=== PATIENT | female | born 1975 | race Caucasian/White ===

== ENCOUNTER → 2016-07-14 | Outpatient (REF) | payer OTHER ==
[~2016-07-14] MED LIST: GABA300C2 PO; IBUP200C PO; PERC5TAB PO; TYLE325T5 PO
== END ==
LOC: M LAB REF 16:22
PROVIDERS: ATTEND Physician Assistant Medical
DX: J02.9 Acute pharyngitis, unspecified (principal)

== ENCOUNTER → 2017-01-23 | Outpatient (REF) | payer OTHER ==
[~2017-01-23] MED LIST changes: +BENA25TA10 PO; +DOXY100C37 PO; +ELIQ5TAB PO; +LIDO1SOL7 MT; +PRED10TA2 PO; +SMZ/TMP PO
== END ==
LOC: M LABDRAW1 11:39
PROVIDERS: ATTEND Physician Assistant Medical
DX: I82.432 Acute embolism and thrombosis of left popliteal vein (principal)

== ENCOUNTER → 2017-01-26 | Outpatient (CLI) | payer OTHER ==
--- NOTE | 2017-01-26 12:13 | REP ---
Chest two views HISTORY: Cough Comparison: None Linear density is present in the right upper lobe consistent with scar. The left lung is clear. The heart is normal in size. The pulmonary vasculature is normal in appearance. The bony structure is intact. IMPRESSION: No acute disease. Signed by Travis Garay MD 01/26/2017 12:04 P
[2017-01-26 13:00] LABS: BASO # 0.1 10^3/uL (0.0-0.2); EOS # 0.2 10^3/uL (0.0-0.50); EOS % 2.2 % (0.0-3.0); IMMATURE GRANULOCYTE % 0.4 % (0-0); LYMPH % 32.9 % (24.0-44.0); MEAN CORPUSCULAR HEMOGLOBIN 29.2 pg (27.0-33.0); MEAN CORPUSCULAR HGB CONC 32.2 g/dl (32.0-36.5); MEAN CORPUSCULAR VOLUME 90.6 fl (80.0-96.0); MONO # 0.5 10^3/uL (0.0-0.8); MONO % 5.1 % (0.0-5.0); NEUTROPHILS # 5.4 10^3/uL (1.8-7.7); NEUTROPHILS % 58.4 % (36.0-66.0); PLATELET COUNT, AUTOMATED 353 10^3/uL (150-450); RED CELL DISTRIBUTION WIDTH 13.4 % (11.5-14.5); WHITE BLOOD COUNT 9.2 10^3/uL (4.0-10.0)
== END ==
LOC: M SMT 10:59
PROVIDERS: ATTEND Physician Assistant Medical
DX: R05 Cough (principal)

== ENCOUNTER → 2017-02-27 | Outpatient (REF) | payer OTHER ==
[2017-02-27 18:02] LABS: FREE T4 1.23 NG/DL (0.76-1.46)
[2017-03-02 14:10] LABS: FACTOR VIII ACTIVITY 156 % (57-163)
== END ==
LOC: M LAB REF 17:29
PROVIDERS: ATTEND Internal Medicine Medical Oncology
DX: D68.9 Coagulation defect, unspecified (principal)

== ENCOUNTER → 2017-02-28 | Outpatient (CLI) | payer OTHER ==
[~2017-02-28] MED LIST changes: +ISOVUE-370 76% 100ML VIAL (Q9967) As Ordered ONE
--- NOTE | 2017-02-28 09:56 | REP ---
Clinical: Acute chest pain with palpitations and tachycardia. Technique: Axial contrast enhanced images from the thoracic inlet to the upper abdomen using 100 ml Isovue 370 intravenous contrast material with coronal and sagittal MIP re-formations. Findings: Satisfactory enhancement of the pulmonary vasculature is achieved and no filling defects are identified to suggest pulmonary embolus. Thoracic aorta is normal caliber without aneurysm or dissection. Heart and pericardium are normal. Bilateral lung nice are well aerated and clear without acute pulmonary parenchymal consolidation or atelectasis. No nodule or mass lesion. No pleural effusion/reaction. No pneumothorax. No adenopathy. Impression: No evidence for pulmonary embolus. Normal thoracic aorta. No acute pleuroparenchymal or mediastinal process. Signed by Antonio Samayoa MD 02/28/2017 09:48 A
== END ==
LOC: M RAD 09:08
PROVIDERS: ATTEND Nurse Practitioner Family
DX: R00.2 Palpitations (principal); R00.0 Tachycardia, unspecified

== ENCOUNTER → 2019-01-18 | Outpatient (REF) | payer OTHER ==
[~2019-01-18] MED LIST changes: +AUGM875T28 PO; -ISOVUE-370 76% 100ML VIAL (Q9967) As Ordered ONE; -LIDO1SOL7 MT; +LIDO1SOL8 MT; +ZOFR8TAB24 PO
== END ==
LOC: M LAB REF 10:45
PROVIDERS: ATTEND Physician Assistant Medical
DX: J01.10 Acute frontal sinusitis, unspecified (principal)

== ENCOUNTER 2019-01-22 08:18 | Emergency (ER) | payer OTHER ==
[~2019-01-22] VITALS: Ht 167.6 cm; Wt 59.3 kg
[~2019-01-22 08:18] MED LIST changes: -AUGM875T28 PO; -ZOFR8TAB24 PO
[2019-01-22] MEDS ORDERED: AUGM875T28 PO (08:28)
[2019-01-22] MEDS ORDERED: NS 1,000 ML IV ONE (08:45)
[2019-01-22 09:09] LABS: BASO % 0.3 % (0.0-1.0); EOS % 0.4 % (0.0-3.0); HEMATOCRIT 38.9 % (36.0-47.0); HEMOGLOBIN 13.2 g/dl (12.0-15.5); LYMPH % 10.8 % (24.0-44.0); MEAN CORPUSCULAR HEMOGLOBIN 31.7 pg (27.0-33.0); MEAN CORPUSCULAR HGB CONC 33.9 g/dl (32.0-36.5); MEAN CORPUSCULAR VOLUME 93.5 fl (80.0-96.0); MONO # 0.6 10^3/uL (0.0-0.8); MONO % 6.6 % (0.0-5.0); NEUTROPHILS # 7.7 10^3/uL (1.5-8.5); NEUTROPHILS % 81.3 % (36.0-66.0); PLATELET COUNT, AUTOMATED 218 10^3/uL (150-450); RED BLOOD COUNT 4.16 10^6/uL (4.00-5.40); WHITE BLOOD COUNT 9.5 10^3/uL (4.0-10.0)
[2019-01-22] MEDS ORDERED: IBUPROFEN 800 MG TAB PO ONE (09:15)
--- NOTE | 2019-01-22 09:19 | REP ---
Two-view chest: 01/22/2019. Indication: Dyspnea. Cough. Comparison: 01/26/2017. Findings: Air space opacities are noted within the lung bases bilaterally as well as small areas of linear atelectasis. No significant pleural fluid is present. There is no pneumothorax. The cardiac silhouette is normal. Impression: Bibasilar pneumonia. Electronically Signed by Kyle Cobos DO 01/22/2019 09:10 A
[2019-01-22 09:38] LABS: ALBUMIN 2.9 GM/DL (3.2-5.2); ALT/SGPT 18 U/L (12-78); BILIRUBIN,DIRECT 0.1 MG/DL (0.0-0.2); BILIRUBIN,TOTAL 0.3 MG/DL (0.2-1.0); BLOOD UREA NITROGEN 9 MG/DL (7-18); CALCIUM LEVEL 8.1 MG/DL (8.5-10.1); CARBON DIOXIDE LEVEL 29 MEQ/L (21-32); CHLORIDE LEVEL 104 MEQ/L (98-107); CK-MB VALUE MASS < 1.0 NG/ML (<3.6); CPK CREATINE PHOSPHOKINASE 244 U/L (26-192); CREATININE FOR GFR 0.59 MG/DL (0.55-1.30); GLOMERULAR FILTRATION RATE > 60.0 (>58); GLUCOSE, FASTING 113 MG/DL (70-100); MB/CK RELATIVE INDEX 0.41 (< OR =4); NT-PRO BNP 50 PG/ML (<125); POTASSIUM SERUM 3.5 MEQ/L (3.5-5.1); SODIUM LEVEL 139 MEQ/L (136-145); TOTAL PROTEIN 6.4 GM/DL (6.4-8.2); TROPONIN I < 0.02 NG/ML (< 0.10)
[2019-01-22] MEDS ORDERED: DOXYCYCLINE HYCLATE 100 MG in D5W MINI-BAG PLUS 100 ML IV ONE (10:00)
[2019-01-22] MEDS ORDERED: DOXY100C37 PO (11:34)
[2019-01-22] MEDS ORDERED: ZOFR8TAB24 PO (11:37)
[2019-01-22 11:55] VITALS: BP 113/68
--- NOTE | 2019-01-22 15:10 | ECGEPIP ---
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
== END 2019-01-22 11:54 | disposition home or self-care (01) ==
LOC: M ED 08:18
DX: J18.9 Pneumonia, unspecified organism (principal); J01.90 Acute sinusitis, unspecified; Z86.718 Personal history of other venous thrombosis and embolism; F17.200 Nicotine dependence, unspecified, uncomplicated; Z79.899 Other long term (current) drug therapy; Z88.2 Allergy status to sulfonamides; Z88.7 Allergy status to serum and vaccine; Z88.8 Allergy status to other drugs, medicaments and biological substances

== ENCOUNTER 2019-02-09 12:10 | Emergency (ER) | payer OTHER ==
[~2019-02-09] VITALS: Ht 167.6 cm; Wt 59.1 kg
[~2019-02-09 12:10] MED LIST changes: +AUGM875T28 PO; +ZOFR8TAB24 PO
[2019-02-09] MEDS ORDERED: LEVO500T3 (12:21)
[2019-02-09] MEDS ORDERED: MAPA325T3 PO (12:21)
[2019-02-09 13:44] VITALS: BP 138/92
--- NOTE | 2019-02-09 13:48 | REP ---
Clinical: Cough . Comparison: 01/22/2019 . Technique: PA and lateral. Findings: The mediastinum and cardiac silhouette are normal. The lung nice are clear and without acute consolidation, effusion, or pneumothorax. Previous lower lobe infiltrates have resolved. The skeletal structures are intact and normal. Impression: 1. No acute cardiopulmonary process. Previous bibasilar infiltrates have resolved. Electronically Signed by Antonio Samayoa MD 02/09/2019 01:38 P
== END 2019-02-09 14:27 | disposition home or self-care (01) ==
LOC: M ED 12:10
DX: B34.9 Viral infection, unspecified (principal); I51.9 Heart disease, unspecified; Z86.718 Personal history of other venous thrombosis and embolism; F17.200 Nicotine dependence, unspecified, uncomplicated; J30.89 Other allergic rhinitis; Z79.899 Other long term (current) drug therapy; Z88.2 Allergy status to sulfonamides; Z88.7 Allergy status to serum and vaccine; Z88.8 Allergy status to other drugs, medicaments and biological substances

== ENCOUNTER 2019-07-13 18:07 | Emergency (ER) | payer OTHER ==
[~2019-07-13] VITALS: Ht 167.6 cm; Wt 56.8 kg
[~2019-07-13 18:07] MED LIST changes: +LEVO500T3; -LIDO1SOL8 MT; +LIDO2SOL17 MT; +MAPA325T3 PO
[2019-07-13] MEDS ORDERED: CEFD1CAP8 PO (18:40)
[2019-07-13 18:43] LABS: BASO # 0.1 10^3/uL (0.0-0.2); BASO % 0.9 % (0.0-1.0); EOS # 0.1 10^3/uL (0.0-0.5); EOS % 1.6 % (0.0-3.0); HEMOGLOBIN 14.2 g/dl (12.0-15.5); LYMPH # 3.6 10^3/uL (1.5-5.0); LYMPH % 41.3 % (24.0-44.0); MEAN CORPUSCULAR HGB CONC 33.8 g/dl (32.0-36.5); MEAN CORPUSCULAR VOLUME 94.6 fl (80.0-96.0); MONO # 0.5 10^3/uL (0.0-0.8); MONO % 5.3 % (0.0-5.0); NEUTROPHILS # 4.3 10^3/uL (1.5-8.5); NEUTROPHILS % 50.3 % (36.0-66.0); PLATELET COUNT, AUTOMATED 276 10^3/uL (150-450); RED BLOOD COUNT 4.44 10^6/uL (4.00-5.40); WHITE BLOOD COUNT 8.6 10^3/uL (4.0-10.0)
[2019-07-13] MEDS ORDERED: NS 1,000 ML IV ONE (18:45)
[2019-07-13] MEDS ORDERED: MECLIZINE 25 MG TABLET PO ONE (18:45)
--- NOTE | 2019-07-13 19:00 | REPVR ---
PROCEDURE INFORMATION: Exam: CT Head Without Contrast Exam date and time: 07/13/2019 6:44 PM Age: 43 years old Clinical indication: Dizziness; Additional info: Dizzy TECHNIQUE: Imaging protocol: Computed tomography of the head without contrast. Radiation optimization: All CT scans at this facility use at least one of these dose optimization techniques: automated exposure control; mA and/or kV adjustment per patient size (includes targeted exams where dose is matched to clinical indication); or iterative reconstruction. COMPARISON: CT Head without contrast 02/09/2017 2:54 PM FINDINGS: Brain: There is no acute intracranial hemorrhage or abnormal extra-axial fluid collection identified. There is no intracranial mass effect or shift of midline structures. The mae-white differentiation is preserved throughout. Ventricles: There is no sulcal or ventricular effacement. The basilar cisterns are open. No hydrocephalus. Bones/joints: No calvarial fracture or destructive osseous lesions are seen. Sinuses: The visualized sinuses are unremarkable. Mastoid air cells: There is no mastoid effusion detected. IMPRESSION: No acute intracranial pathology identified by CT. Electronically signed by: Cheryl Pichardo On 07/13/2019 19:00:16 PM
--- NOTE | 2019-07-13 19:09 | ECGEPIP ---
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
[2019-07-13] MEDS ORDERED: CLAR5TAB7 PO (20:39)
[2019-07-13] MEDS ORDERED: MECL-86 PO (20:39)
[2019-07-13 20:54] VITALS: BP 117/77
== END 2019-07-13 20:55 | disposition home or self-care (01) ==
LOC: M ED 18:07
DX: H83.09 Labyrinthitis, unspecified ear (principal); R42 Dizziness and giddiness; R00.1 Bradycardia, unspecified; J30.2 Other seasonal allergic rhinitis; I51.9 Heart disease, unspecified; F17.200 Nicotine dependence, unspecified, uncomplicated; Z79.899 Other long term (current) drug therapy; Z88.2 Allergy status to sulfonamides; Z88.7 Allergy status to serum and vaccine; Z88.8 Allergy status to other drugs, medicaments and biological substances

== ENCOUNTER 2019-10-25 16:00 | Emergency (ER) | payer OTHER ==
[~2019-10-25] VITALS: Ht 167.6 cm; Wt 55.6 kg
[~2019-10-25 16:00] MED LIST changes: +ACET325T42 PO; +CEFD1CAP8 PO; +CLAR5TAB7 PO; -MAPA325T3 PO; +MECL-86 PO
[2019-10-25] MEDS ORDERED: IBUP200C25 PO (16:15)
[2019-10-25 17:59] VITALS: BP 133/71
--- NOTE | 2019-10-26 09:26 | REP ---
ANKLE: REASON: Trauma. COMPARISON: 06/11/2015 FINDINGS: No acute fracture or destructive osseous lesion. The mortise is intact. There is an unchanged sclerotic density in the distal tibia. Electronically Signed by Brett Gibson DO 10/26/2019 09:39 A
== END 2019-10-25 18:01 | disposition home or self-care (01) ==
LOC: M ED 16:00
DX: S99.911A Unspecified injury of right ankle, initial encounter (principal); X58.XXXA Exposure to other specified factors, initial encounter; Y92.197 Garden or yard of other specified residential institution as the place of occurrence of the external cause; Y93.H2 Activity, gardening and landscaping; Y99.8 Other external cause status; F17.200 Nicotine dependence, unspecified, uncomplicated; Z79.899 Other long term (current) drug therapy; Z88.2 Allergy status to sulfonamides; Z91.048 Other nonmedicinal substance allergy status; Z88.1 Allergy status to other antibiotic agents; Z88.7 Allergy status to serum and vaccine; Z98.890 Other specified postprocedural states

== ENCOUNTER → 2020-10-28 | Outpatient (CLI) | payer OTHER ==
[~2020-10-28] MED LIST changes: -DOXY100C37 PO; +DOXY1CAP62 PO; +IBUP200C25 PO
[2020-10-28 14:02] LABS: BLOOD UREA NITROGEN 20 MG/DL (7-18); CARBON DIOXIDE LEVEL 27 MEQ/L (21-32); CHLORIDE LEVEL 108 MEQ/L (98-107); CREATININE FOR GFR 0.64 MG/DL (0.55-1.30); GLOMERULAR FILTRATION RATE > 60.0 (>58); GLUCOSE, FASTING 94 MG/DL (70-100); POTASSIUM SERUM 4.1 MEQ/L (3.5-5.1); SODIUM LEVEL 141 MEQ/L (136-145)
[2020-10-28 14:03] LABS: ALBUMIN 4.1 GM/DL (3.2-5.2); ALT/SGPT 30 U/L (12-78); BILIRUBIN,TOTAL 0.3 MG/DL (0.2-1.0); CALCIUM LEVEL 8.7 MG/DL (8.5-10.1); CHOLESTEROL LEVEL 238 MG/DL (<200); CHOLESTEROL RISK RATIO 2.833 (<5); HDL CHOLESTEROL 84 MG/DL (>40); LDL CHOLESTEROL 142 MG/DL (<100); NON-HDL-C 154 MG/DL; TOTAL PROTEIN 6.7 GM/DL (6.4-8.2); TRIGLYCERIDES LEVEL 61 MG/DL (<150)
== END ==
LOC: M PLALAB 11:08
PROVIDERS: ATTEND Nurse Practitioner Family
DX: Z00.00 Encounter for general adult medical examination without abnormal findings (principal)

== ENCOUNTER → 2020-11-01 | Outpatient (CLI) | payer OTHER ==
--- NOTE | 2020-11-08 15:59 | REPMRS ---
Patient History The patient states she had a clinical breast exam in July 2020. Family history of breast cancer in maternal grandmother. Patient had a small amount of dark green discharge from the right nipple after compression. Patient states she had not noticed that before No breast complaints or changes today Patient signed the MRS sheet 1st covid vaccine 06/22/20-left arm-Pfizer 2nd covid vaccine 07/12/20-left arm Priors done @ [facility] Patient Identification Verified Patient denied Digital Woman Screen Mammo: November 01, 2020 - Exam #: [id number] Bilateral CC and MLO view(s) were taken. Technologist: Mona Delgado, Technologist Prior study comparison: October 30, 2020, bilateral digital mammo screening bilat, performed at [facility]. October 28, 2018, bilateral digital mammo screening bilat, performed at [facility]. October 26, 2017, bilateral digital mammo screening bilat, performed at [facility]. FINDINGS: The breast tissue is heterogeneously dense. This may lower the sensitivity of mammography. Screening. Digital screening (2D) mammography was performed bilaterally in the CC and MLO projections. Additionally, breast tomosynthesis (3D mammography) was performed bilaterally in the CC and MLO projections. Todays exam was compared to the prior exam/exams. By history, the patient has no complaints of a palpable breast abnormality or other significant breast complaints. The breasts are unchanged in size and shape. Once again, dense heterogenous fibroglandular elements are seen bilaterally in a stable appearing pattern but to such a degree that the sensitivity of the mammogram in detecting cancer is decreased.There are no brittany-soft tissue densities or spiculated masses. There is no internal architectural distortion. There are no suspicious brittany-calcific clusters. Skin thickening or nipple retraction is not present. IMPRESSION: BI-RADS Category 2- Benign Findings. There is no evidence of malignant alteration of the breasts. Followup examination recommended in one year. The Volpara volumetric breast density category is C, the breasts are heterogenously dense which may obscure small masses. This mammogram was read with the assistance of Jose C Mobile-XL,an FDA approved computer aided detection system for mammography. The lifetime Tyrer-Cuzick score is 16 % Negative x-ray reports should not delay surgical consultation if a dominant or clinically suspicious mass is present. Not all breast cancers can be identified by mammography. Therefore, we recommend that you continue to perform regular breast self-examination and physical examination and then promptly contact your physician of any concerns or changes. Adenosis and dense breasts may obscure an underlying neoplasm. Assessment: BI-RADS/ACR category 2 mammogram. Benign Findings. Recommendation Routine screening mammogram of both breasts in 1 year. Electronically Signed By: Brett Gibson DO 11/08/20 [id number]
== END ==
LOC: M WHC 14:53
PROVIDERS: ATTEND Obstetrics & Gynecology
DX: Z12.31 Encounter for screening mammogram for malignant neoplasm of breast (principal); Z80.3 Family history of malignant neoplasm of breast; R92.2 Inconclusive mammogram

== ENCOUNTER → 2021-11-02 | Outpatient (CLI) | payer OTHER ==
[~2021-11-02] MED LIST changes: -CEFD1CAP8 PO; +CEFD300C41 PO; +DOXY-443 PO; -DOXY1CAP62 PO; -LEVO500T3; +LEVO500T4
== END ==
LOC: M WHC 13:32
PROVIDERS: ATTEND Obstetrics & Gynecology
DX: Z12.31 Encounter for screening mammogram for malignant neoplasm of breast (principal)

== ENCOUNTER → 2022-03-21 | Outpatient (CLI) | payer OTHER ==
[~2022-03-21] MED LIST changes: +GABA-282 PO; +LEVO1TAB39; -LEVO500T4; +LORA-674 PO
[2022-03-21 15:08] LABS: ALBUMIN 4.2 G/DL (3.2-5.2); ALKALINE PHOSPHATASE 72 U/L (46-116); ALT/SGPT 39 U/L (7.0-40); AST/SGOT 42 U/L (<34); BILIRUBIN,TOTAL 0.4 MG/DL (0.3-1.2); BLOOD UREA NITROGEN 16 MG/DL (9-23); CALCIUM LEVEL 9.6 MG/DL (8.5-10.1); CARBON DIOXIDE LEVEL 30 MMOL/L (20-31); CHLORIDE LEVEL 104 MMOL/L (98-107); CHOLESTEROL LEVEL 222 MG/DL (<200); CHOLESTEROL RISK RATIO 2.25 (<5); CREATININE FOR GFR 0.74 MG/DL (0.55-1.30); GLOMERULAR FILTRATION RATE > 60.0 (>58); GLUCOSE, FASTING 112 MG/DL (60-100); HDL CHOLESTEROL 98.5 MG/DL (>40); LDL CHOLESTEROL 112.3 MG/DL (<100); NON-HDL-C 124 MG/DL; POTASSIUM SERUM 4.9 MMOL/L (3.5-5.1); SODIUM LEVEL 140 MMOL/L (136-145); TOTAL PROTEIN 7.1 G/DL (5.7-8.2); TRIGLYCERIDES LEVEL 56 MG/DL (<150)
== END ==
LOC: M PLALAB 11:59
PROVIDERS: ATTEND Nurse Practitioner Family
DX: E78.5 Hyperlipidemia, unspecified (principal)

== ENCOUNTER → 2022-03-24 | Outpatient (REF) | payer OTHER | LOC: M LAB REF 12:57 | PROVIDERS: ATTEND Nurse Practitioner Family | DX: R31.9 Hematuria, unspecified (principal) ==

== ENCOUNTER → 2022-03-26 | Outpatient (CLI) | payer OTHER | LOC: M LABSMTC 09:50 | PROVIDERS: ATTEND Anesthesiology | DX: Z01.812 Encounter for preprocedural laboratory examination (principal); Z20.822 Contact with and (suspected) exposure to COVID-19 ==

== ENCOUNTER 2022-03-30 07:18 | Day surgery (SDC) | payer OTHER ==
[~2022-03-30] VITALS: Ht 165.1 cm; Wt 54.2 kg
[~2022-03-30 07:18] MED LIST changes: +NS 1,000 ML IV ONE
[2022-03-30] MEDS ORDERED: MIDAZOLAM INJ 2MG/2ML VIAL (J2250 PER 1MG) As Ordered ONE (07:53)
[2022-03-30] MEDS ORDERED: propofoL 200 MG/20 ML VIAL As Ordered ONE ×2 (07:53→08:28)
[2022-03-30] MEDS ORDERED: LIDOCAINE 2% 100MG/5ML SDV (FOR ANES.) As Ordered ONE (07:53)
[2022-03-30 10:15] VITALS: BP 106/71
== END 2022-03-30 10:24 | disposition home or self-care (01) ==
LOC: M OPP 07:18
PROVIDERS: ATTEND Surgery
DX: Z12.11 Encounter for screening for malignant neoplasm of colon (principal); K64.4 Residual hemorrhoidal skin tags; K64.8 Other hemorrhoids; Q43.8 Other specified congenital malformations of intestine; Z79.1 Long term (current) use of non-steroidal anti-inflammatories (NSAID); Z79.899 Other long term (current) drug therapy; Z88.1 Allergy status to other antibiotic agents; Z88.2 Allergy status to sulfonamides; Z88.7 Allergy status to serum and vaccine; M54.9 Dorsalgia, unspecified; Z86.718 Personal history of other venous thrombosis and embolism; Z87.891 Personal history of nicotine dependence
CPT/HCPCS: 45378; J2250

== ENCOUNTER 2022-07-02 08:50 | Emergency (ER) | payer OTHER ==
[~2022-07-02] VITALS: Ht 165.1 cm; Wt 55.8 kg
[~2022-07-02 08:50] MED LIST changes: +LIDO15SO4 MT; -LIDO2SOL17 MT; -NS 1,000 ML IV ONE
[2022-07-02 08:51] VITALS: BP 131/80
[2022-07-02] MEDS ORDERED: predniSONE 20 MG TAB PO ONE (09:50)
[2022-07-02] MEDS ORDERED: LIDOCAINE 5% (LIDODERM) PATCH TD ONE (09:50)
[2022-07-02] MEDS ORDERED: KETOROLAC 60MG 2ML VIAL IM ONE (09:50)
[2022-07-02] MEDS ORDERED: diazePAM 5MG TABLET PO ONE (09:50)
[2022-07-02 10:24] LABS: BASO # 0.1 10^3/uL (0.0-0.2); BASO % 1.2 % (0.0-1.0); EOS # 0.3 10^3/uL (0.0-0.5); EOS % 3.5 % (0.0-3.0); HEMATOCRIT 46.3 % (36.0-47.0); HEMOGLOBIN 15.3 g/dl (12.0-15.5); LYMPH % 36.4 % (24.0-44.0); MEAN CORPUSCULAR HEMOGLOBIN 32.1 pg (27.0-33.0); MEAN CORPUSCULAR VOLUME 97.1 fl (80.0-96.0); MONO # 0.5 10^3/uL (0.0-0.8); MONO % 5.7 % (2.0-8.0); NEUTROPHILS # 4.3 10^3/uL (1.5-8.5); NEUTROPHILS % 52.8 % (36.0-66.0); PLATELET COUNT, AUTOMATED 301 10^3/uL (150-450); RED BLOOD COUNT 4.77 10^6/uL (4.00-5.40); WHITE BLOOD COUNT 8.2 10^3/uL (4.0-10.0)
[2022-07-02 10:33] LABS: ERYTHROCYTE SEDIMENTATION RATE 4 mm/hr (0-20)
[2022-07-02 10:48] LABS: C REACTIVE PROTEIN QUANTITATIV < 0.40 MG/DL (<1.0)
[2022-07-02 10:49] LABS: BLOOD UREA NITROGEN 23 MG/DL (9-23); CALCIUM LEVEL 8.8 MG/DL (8.5-10.1); CARBON DIOXIDE LEVEL 27 MMOL/L (20-31); CHLORIDE LEVEL 103 MMOL/L (98-107); CREATININE FOR GFR 0.67 MG/DL (0.55-1.30); GLOMERULAR FILTRATION RATE > 60.0 (>58); GLUCOSE, FASTING 102 MG/DL (60-100); POTASSIUM SERUM 5.5 MMOL/L (3.5-5.1); SODIUM LEVEL 135 MMOL/L (136-145)
[2022-07-02] MEDS ORDERED: NORCO, ANEXSIA 5/325MG TABLET (HYDROcodone/ACETAMINOPHEN) PO ONE (12:15)
[2022-07-02] MEDS ORDERED: HYDR-3713 PO (13:28)
[2022-07-02] MEDS ORDERED: ASPE4PAD TOP (13:28)
[2022-07-02] MEDS ORDERED: METH-1165 PO (13:28)
[2022-07-02] MEDS ORDERED: MEDR4PAK PO (13:28)
== END 2022-07-02 13:44 | disposition home or self-care (01) ==
LOC: M ED 08:50
DX: S89.91XA Unspecified injury of right lower leg, initial encounter (principal); M54.50 Low back pain, unspecified; Z86.718 Personal history of other venous thrombosis and embolism; J30.1 Allergic rhinitis due to pollen; F17.200 Nicotine dependence, unspecified, uncomplicated; Z79.899 Other long term (current) drug therapy; Z88.2 Allergy status to sulfonamides; Z88.7 Allergy status to serum and vaccine; Z88.8 Allergy status to other drugs, medicaments and biological substances
CPT/HCPCS: 73564; 80048; 84550; 85025; 85652; 86140; 96372; 99282; J1885; J7512

== ENCOUNTER → 2022-07-04 | Outpatient (CLI) | payer OTHER ==
[~2022-07-04] MED LIST changes: +ASPE4PAD TOP; +HYDR-3713 PO; +MEDR4PAK PO; +METH-1165 PO
== END ==
LOC: M SOG 08:52
PROVIDERS: ATTEND Orthopaedic Surgery
DX: M54.50 Low back pain, unspecified (principal); Z53.9 Procedure and treatment not carried out, unspecified reason

== ENCOUNTER 2022-08-01 11:24 | Outpatient (RCR) | payer OTHER ==
[~2022-08-01 11:24] MED LIST changes: +LIDO15SO MT; -LIDO15SO4 MT
== END 2022-08-06 ==
LOC: M PT 11:24
PROVIDERS: ATTEND Orthopaedic Surgery
DX: M22.2X1 Patellofemoral disorders, right knee (principal)

== ENCOUNTER 2022-08-30 12:14 | Outpatient (RCR) | payer OTHER | END 2022-09-06 | LOC: M PT 12:14 | PROVIDERS: ATTEND Orthopaedic Surgery | DX: M22.2X1 Patellofemoral disorders, right knee (principal) ==

== ENCOUNTER 2022-09-12 11:30 | Outpatient (RCR) | payer OTHER | END 2022-10-06 | LOC: M PT 11:30 | PROVIDERS: ATTEND Orthopaedic Surgery | DX: M22.2X1 Patellofemoral disorders, right knee (principal) ==

== ENCOUNTER → 2022-11-08 | Outpatient (CLI) | payer OTHER | LOC: M WHC 12:54 | PROVIDERS: ATTEND Obstetrics & Gynecology | DX: Z12.31 Encounter for screening mammogram for malignant neoplasm of breast (principal) ==

== ENCOUNTER → 2023-11-12 | Outpatient (CLI) | payer OTHER ==
[~2023-11-12] MED LIST changes: +CEFD1CAP9 PO; -CEFD300C41 PO; +DOXY-323 PO; -DOXY-443 PO; -LIDO15SO MT; +LIDO15SO8 MT; +LORA-1041 PO; -LORA-674 PO
== END ==
LOC: M WHC 13:55
PROVIDERS: ATTEND Obstetrics & Gynecology
DX: Z12.31 Encounter for screening mammogram for malignant neoplasm of breast (principal); R92.323 Mammographic fibroglandular density, bilateral breasts

== ENCOUNTER → 2024-12-01 | Outpatient (CLI) | payer OTHER ==
[~2024-12-01] MED LIST changes: -DOXY-323 PO; +DOXY-441 PO; +GABA-1172 PO; -GABA-282 PO
== END ==
LOC: M WHC 14:26
PROVIDERS: ATTEND Obstetrics & Gynecology
DX: Z12.31 Encounter for screening mammogram for malignant neoplasm of breast (principal); R92.313 Mammographic fatty tissue density, bilateral breasts

== ENCOUNTER 2025-01-14 11:19 | Emergency (ER) | payer OTHER ==
[~2025-01-14] VITALS: Ht 165.1 cm; Wt 53.6 kg
[2025-01-14 11:23] VITALS: TEMP 97.5
[2025-01-14] MEDS ORDERED: ESTR1GEL9 (11:40)
[2025-01-14 13:02] VITALS: BP 116/74; O2SAT 100
== END 2025-01-14 13:20 | disposition home or self-care (01) ==
LOC: M ED 11:19
DX: S76.311A Strain of muscle, fascia and tendon of the posterior muscle group at thigh level, right thigh, initial encounter (principal); X58.XXXA Exposure to other specified factors, initial encounter; Y92.9 Unspecified place or not applicable; Y93.02 Activity, running; Y99.9 Unspecified external cause status; Z79.899 Other long term (current) drug therapy; Z88.2 Allergy status to sulfonamides; Z88.7 Allergy status to serum and vaccine; Z88.8 Allergy status to other drugs, medicaments and biological substances